=== PATIENT | female | born 1985 | race Caucasian/White ===

== ENCOUNTER 2018-05-09 17:14 | Emergency (ER) | payer MEDICAID ==
[~2018-05-09] VITALS: Ht 177.8 cm; Wt 81.8 kg
[~2018-05-09 17:14] MED LIST: CLIN150C8 PO; CLIN300C85 PO; HYDR-569 PO; NO HOME MEDS
[2018-05-09 17:20] VITALS: BP 128/86
[2018-05-09] MEDS ORDERED: NEOM10DR45 OT (18:09)
[2018-05-09] MEDS ORDERED: LEVO500T2 PO (18:09)
[2018-05-09] MEDS: levoFLOXACIN 250mg tablet PO ONE (18:16)
== END 2018-05-09 18:18 | disposition home or self-care (01) ==
LOC: ER 17:15
DX: H66.91 Otitis media, unspecified, right ear (principal); H60.91 Unspecified otitis externa, right ear; F15.90 Other stimulant use, unspecified, uncomplicated; Z56.0 Unemployment, unspecified; Z79.899 Other long term (current) drug therapy; Z88.0 Allergy status to penicillin
CPT/HCPCS: 99283

== ENCOUNTER 2018-08-27 19:09 | Emergency (ER) | payer MEDICAID ==
[~2018-08-27] VITALS: Ht 180.3 cm; Wt 107.0 kg
[~2018-08-27 19:09] MED LIST changes: +HYDR-4383 PO; -HYDR-569 PO
[2018-08-27 19:11] VITALS: BP 137/88
--- NOTE | 2018-08-27 19:50 | NUR ---
Presents with complaints of "whole right side" "tooth pain" that started today, maegan ineffective, planning on going to mobile [facility] in [place]
[2018-08-27] MEDS ORDERED: CLIN150C2 PO (20:17)
== END 2018-08-27 20:32 | disposition home or self-care (01) ==
LOC: ER 19:10
DX: K08.89 Other specified disorders of teeth and supporting structures (principal); F17.200 Nicotine dependence, unspecified, uncomplicated; F12.90 Cannabis use, unspecified, uncomplicated; Z88.0 Allergy status to penicillin; Z79.2 Long term (current) use of antibiotics; Z56.0 Unemployment, unspecified
CPT/HCPCS: 99283

== ENCOUNTER 2020-11-09 17:43 | Emergency (ER) | payer MEDICAID ==
[~2020-11-09] VITALS: Ht 177.8 cm; Wt 81.8 kg
[2020-11-09 18:08] VITALS: BP 137/85
== END 2020-11-09 20:03 | disposition left against medical advice (07) ==
LOC: ER 17:44
DX: H57.89 Other specified disorders of eye and adnexa (principal); Z53.21 Procedure and treatment not carried out due to patient leaving prior to being seen by health care provider

== ENCOUNTER 2020-12-16 23:29 | Emergency (ER) | payer MEDICAID ==
[~2020-12-16] VITALS: Ht 177.8 cm; Wt 81.8 kg
[2020-12-17] MEDS ORDERED: CLIN150C8 PO (00:14)
[2020-12-17] MEDS ORDERED: clindamycin 150mg capsule PO ONE (00:15)
[2020-12-17] MEDS ORDERED: acetaminophen 325mg tablet PO ONE (00:15)
[2020-12-17] MEDS ORDERED: ondansetron 4mg rapidly disintigrating tab PO ONE (00:15)
[2020-12-17 00:24] VITALS: BP 129/88
== END 2020-12-17 00:28 | disposition home or self-care (01) ==
LOC: ER 23:29
DX: K08.89 Other specified disorders of teeth and supporting structures (principal); F12.90 Cannabis use, unspecified, uncomplicated; Z56.0 Unemployment, unspecified; Z88.0 Allergy status to penicillin; Z79.899 Other long term (current) drug therapy
CPT/HCPCS: 99284

== ENCOUNTER 2021-11-02 21:48 | Emergency (ER) | payer MEDICAID ==
[~2021-11-02] VITALS: Ht 177.8 cm; Wt 81.8 kg
[~2021-11-02 21:48] MED LIST changes: -CLIN300C85 PO; -HYDR-4383 PO; -NO HOME MEDS
[2021-11-02 22:47] LABS: BASOPHILS # (AUTO) 0.1 X10'3 (0-0.2); BASOPHILS % (AUTO) 0.6 % (0-1); EOSINOPHILS # (AUTO) 0.5 X10'3 (0-0.9); EOSINOPHILS % (AUTO) 5.9 % (0-6); HEMATOCRIT 39.7 % (35.0-45.0); HEMOGLOBIN 13.5 g/dl (12.0-16.0); LYMPHOCYTES # (AUTO) 2.8 X10'3 (1.1-4.8); LYMPHOCYTES % (AUTO) 33.9 % (21-51); MEAN CORPUSCULAR VOLUME 88.1 FL (78-98); MEAN PLATELET VOLUME 8.2 FL (7.4-10.4); MONOCYTES # (AUTO) 0.5 X10'3 (0-0.9); MONOCYTES % (AUTO) 6.6 % (2-12); NEUTROPHILS # (AUTO) 4.4 X10'3 (1.8-7.7); PLATELET COUNT 239 X10'3 (140-440); RED CELL DISTRIBUTION WIDTH 13.5 % (11.5-14.5); WHITE BLOOD COUNT 8.3 X10'3 (4.5-11.0)
[2021-11-02 22:54] LABS: ALANINE AMINOTRANSFERASE 21 U/L (12-78); ALBUMIN 3.5 G/DL (3.4-5.0); ALBUMIN/GLOBULIN RATIO 1.1 (1.1-1.5); ALKALINE PHOSPHATASE 66 IU/L (46-116); ANION GAP 8 (8-16); ASPARTATE AMINO TRANSFERASE 17 U/L (10-37); BILIRUBIN,TOTAL 0.3 MG/DL (0.1-1.0); BLOOD UREA NITROGEN 7 MG/DL (7-18); BUN/CREATININE RATIO 10.6 (6.6-38.0); CALCIUM 8.5 MG/DL (8.5-10.1); CHLORIDE 108 MMOL/L (99-107); CREATININE 0.66 MG/DL (0.40-0.90); GLUCOSE 109 MG/DL (70-104); POTASSIUM 3.6 MMOL/L (3.5-5.1); SODIUM 143 MMOL/L (135-145); TOTAL CARBON DIOXIDE 27.5 MMOL/L (24-32); TOTAL PROTEIN 6.6 G/DL (6.4-8.2); eGFR > 90 ML/MIN
[2021-11-02 23:35] LABS: D-DIMER < 0.19 MG/L FEU (0-0.50)
[2021-11-03] MEDS ORDERED: ALBU8HFA PO (00:10)
[2021-11-03] MEDS ORDERED: LIDOCAINE 2% w/EPI 1:100:000 30mL injection MDV**cath lab 1 only SQ ONE (00:25)
[2021-11-03] MEDS ORDERED: LIDOcaine 1% 30ml preserv. free vial IJ ONE (00:25)
[2021-11-03 00:26] VITALS: BP 124/87
== END 2021-11-03 00:33 | disposition home or self-care (01) ==
LOC: ER 21:53
DX: J18.9 Pneumonia, unspecified organism (principal); Z56.0 Unemployment, unspecified; Z88.0 Allergy status to penicillin
CPT/HCPCS: 36415; 71045; 80053; 83605; 83880; 85025; 85379; 87040; 93005; 99285

== ENCOUNTER 2023-12-22 17:12 | Outpatient (CLI) | payer MEDICAID ==
[~2023-12-22 17:12] MED LIST changes: +CLIN-214 PO; -CLIN150C8 PO
== END 2023-12-22 23:59 | disposition home or self-care (01) ==
LOC: RAD 17:12
PROVIDERS: ATTEND Physician Assistant
DX: M47.816 Spondylosis without myelopathy or radiculopathy, lumbar region (principal); M54.41 Lumbago with sciatica, right side
CPT/HCPCS: 72100; 73502

== ENCOUNTER 2024-08-14 04:26 | Emergency (ER) | payer MEDICAID ==
[~2024-08-14] VITALS: Ht 180.3 cm; Wt 104.0 kg
[2024-08-14 05:14] LABS: BASOPHILS % (AUTO) 0.5 % (0-1); EOSINOPHILS # (AUTO) 0.1 X10'3 (0-0.9); EOSINOPHILS % (AUTO) 1.5 % (0-6); HEMATOCRIT 45.2 % (35.0-45.0); HEMOGLOBIN 15.4 g/dl (12.0-16.0); MEAN CORPUSCULAR HEMOGLOBIN 30.8 PG (27.0-31.0); MEAN CORPUSCULAR VOLUME 90.5 FL (78-98); MEAN PLATELET VOLUME 8.8 FL (7.4-10.4); MONOCYTES # (AUTO) 0.8 X10'3 (0-0.9); MONOCYTES % (AUTO) 10.3 % (2-12); NEUTROPHILS # (AUTO) 4.8 X10'3 (1.8-7.7); NEUTROPHILS % (AUTO) 61.7 % (42-75); PLATELET COUNT 293 X10'3 (140-440); RED CELL DISTRIBUTION WIDTH 13.5 % (11.5-14.5); WHITE BLOOD COUNT 7.8 X10'3 (4.5-11.0)
[2024-08-14 06:00] LABS: ALANINE AMINOTRANSFERASE 35 U/L (12-78); ALBUMIN 3.7 G/DL (3.4-5.0); ALBUMIN/GLOBULIN RATIO 0.9 (1.1-1.5); ALKALINE PHOSPHATASE 142 IU/L (46-116); ANION GAP 16 (8-16); ASPARTATE AMINO TRANSFERASE 14 U/L (10-37); BILIRUBIN,TOTAL 0.5 MG/DL (0.1-1.0); BLOOD UREA NITROGEN 10 MG/DL (7-18); BUN/CREATININE RATIO 8.4 (10.0-20.0); CALCIUM 10.2 MG/DL (8.5-10.1); CHLORIDE 96 MMOL/L (99-107); CREATININE 1.19 MG/DL (0.40-0.90); PRO BRAIN NATRIURETIC PEPTIDE < 30 PG/ML (0-125); SODIUM 129 MMOL/L (135-145); TOTAL CARBON DIOXIDE 16.6 MMOL/L (24-32); TOTAL PROTEIN 7.7 G/DL (6.4-8.2); eCRCL 72 ML/MIN; eGFR 51 ML/MIN
[2024-08-14 06:01] LABS: POTASSIUM 4.2 MMOL/L (3.5-5.1)
[2024-08-14 06:02] LABS: GLUCOSE 681 MG/DL (70-104)
[2024-08-14] MEDS ORDERED: insulin regular, human 10 units/0.1 ml syringe SQ ONE (06:20)
[2024-08-14] MEDS: normal saline 1000ML IV soln IVB ONE (06:36)
[2024-08-14 06:47] VITALS: TEMP 98.1
[2024-08-14] MEDS ORDERED: BUDE10.22 PO ×2 (06:54)
[2024-08-14] MEDS ORDERED: METF-1203 PO (06:54)
[2024-08-14] MEDS ORDERED: DOXY100C43 PO (06:54)
[2024-08-14] MEDS: CefTRIAXone 2gm/D5W 50ml BAG 50 ML IV ONE (07:18)
[2024-08-14] MEDS: insulin regular, human 10 units/0.1 ml syringe IV ONE (08:03)
[2024-08-14] MEDS: insulin regular, human 10 units/0.1 ml syringe SQ ONE (08:05)
[2024-08-14 08:39] VITALS: BP 123/78; PULSE 111; RESP 20; O2SAT 99
== END 2024-08-14 08:41 | disposition home or self-care (01) ==
LOC: ER 04:27
DX: J45.909 Unspecified asthma, uncomplicated (principal); E11.9 Type 2 diabetes mellitus without complications; I10 Essential (primary) hypertension; F17.210 Nicotine dependence, cigarettes, uncomplicated; F12.90 Cannabis use, unspecified, uncomplicated; F15.90 Other stimulant use, unspecified, uncomplicated; Z88.0 Allergy status to penicillin
CPT/HCPCS: 36415; 71045; 80053; 82948; 83880; 84484; 85025; 93005; 96361; 96365; 96372; 96375; 99285; J0696; J1815; J7030